=== PATIENT | male | born 1990 | race Caucasian/White ===

== ENCOUNTER 2020-07-29 07:04 | Emergency (ER) | payer OTHER ==
[~2020-07-29] VITALS: Ht 182.9 cm; Wt 88.0 kg
[2020-07-29 07:21] VITALS: BP 153/98; Ht 182.9 cm; Wt 88.0 kg
== END 2020-07-29 10:05 | disposition home or self-care (01) ==
LOC: ED 07:04
DX: R20.2 Paresthesia of skin (principal); M51.34 Other intervertebral disc degeneration, thoracic region
CPT/HCPCS: J1885